=== PATIENT | female | born 1945 | race Caucasian/White ===

== ENCOUNTER 2023-01-31 15:22 | Outpatient (REF) | payer MEDICARE, SELFPAY ==
[2023-01-31 16:20] LABS: SARS-CoV-2 Ag NEGATIVE (NEGATIVE)
[2023-02-01 10:03] LABS: SARS-CoV-2 NAA NOT DETECTED (NOT DETECTE)
== END 2023-01-31 15:23 | disposition home or self-care (01) ==
LOC: LAB 15:22
PROVIDERS: PCP Family Medicine; Visit Provider Family Medicine
DX: J45.909 Unspecified asthma, uncomplicated (principal)
CPT/HCPCS: 87635; 87811; U0003